=== PATIENT | female | born 1950 | race Caucasian/White ===

== ENCOUNTER → 2016-12-04 | Outpatient (CLI) | payer OTHER, MEDICARE | LOC: FIMAGING 11:38 | DX: T84.223A Displacement of internal fixation device of bones of foot and toes, initial encounter (principal); M77.32 Calcaneal spur, left foot ==

== ENCOUNTER → 2017-02-05 | Outpatient (CLI) | payer OTHER, MEDICARE | LOC: BRMIMAGING 14:24 | PROVIDERS: ATTEND Internal Medicine Hematology & Oncology | DX: Z13.820 Encounter for screening for osteoporosis (principal); Z78.0 Asymptomatic menopausal state; Z82.62 Family history of osteoporosis; E11.9 Type 2 diabetes mellitus without complications; Z85.3 Personal history of malignant neoplasm of breast ==

== ENCOUNTER → 2017-04-24 | Outpatient (CLI) | payer OTHER, MEDICARE | LOC: BMCIMAGING 13:22 | PROVIDERS: ATTEND Podiatrist Foot & Ankle Surgery | DX: Z09 Encounter for follow-up examination after completed treatment for conditions other than malignant neoplasm (principal); M85.872 Other specified disorders of bone density and structure, left ankle and foot; Z98.890 Other specified postprocedural states ==

== ENCOUNTER 2018-03-12 11:19 | Day surgery (SDC) | payer OTHER, MEDICARE ==
[2018-03-12] MEDS ORDERED: MIDAZOLAM 2 MG/2 ML VIAL IVP ONE (11:24)
[2018-03-12] MEDS ORDERED: NS 500 ML IV ONE (11:24)
[2018-03-12] MEDS ORDERED: BENZOCAINE UNIT DOSE SPRAY HURRICAINE MM ONE (11:24)
[2018-03-12] MEDS ORDERED: fentaNYL 100 MCG/2 ML INJ IVP ONE (11:24)
--- NOTE | 2018-03-12 12:01 | PDGENHP ---
History & Physical History of Present Illness: 67-year-old female with history of breast cancer. On transthoracic echocardiogram in the office she had a possible right atrial mass and now needs TRENT for further evaluation. Pertinent Past, Social, Family History: Reviewed Relevant Physical Exam: Regular rate and rhythm without murmur or gallop. Lungs clear with out wheeze rhonchi rales Cardiorespiratory Assessment: Stable for TRENT.
[2018-03-12] MEDS ORDERED: PROPOFOL 200 MG/20 ML VIAL ONE (12:12)
[2018-03-12] MEDS ORDERED: PROMETHAZINE HCL 25 MG/ML INJ IVP PRN (12:42)
[2018-03-12] MEDS ORDERED: fentaNYL 100 MCG/2 ML INJ IVP PRN (12:42)
[2018-03-12] MEDS ORDERED: NALOXONE HCL 0.4 MG/ML INJ IVP PRN (12:42)
[2018-03-12] MEDS ORDERED: ONDANSETRON 4 MG/2 ML VIAL IVP PRN (12:42)
--- NOTE | 2018-03-12 12:42 | PDANEPAE ---
ANE Past Medical History - Pulmonary History Hx COPD: No Hx Asthma/Reactive Airway Disease: No Hx Oxygen in Use at Home: No Hx Sleep Apnea: Yes ANE Review of Systems Review of Systems: ANE Patient History - Allergies Allergies/Adverse Reactions: No Known Allergies Allergy (Unverified 03/12/18 11:24) - Home Medications Home medications: home medication list seen and reviewed - NPO status NPO Status: no food or drink >8 hours - Anes Hx Anes Hx: no prior problems - Smoking Hx Smoking Status: Never smoked ANE Labs/Vital Signs - Vital Signs Height: 162.56 cm Weight: 92.533 kg ANE Physical Exam - Airway Neck exam: FROM Mallampati Score: Class 3 Mouth exam: normal dental/mouth exam - Pulmonary Pulmonary: no respiratory distress, no rales or rhonchi, clear to auscultation - Cardiovascular Cardiovascular: regular rate and rhythym, no murmur, rub, or gallop - ASA Status ASA Status: III ANE Anesthesia Plan Anesthesia Plan: GA with mask
--- NOTE | 2018-03-12 12:44 | POSTANESTH ---
Post Anesthetic Evaluation Cardiovascular Status: Normal, Stable, Similar to Pre-Op Cond Respiratory Status: Normal, Stable, Similar to Pre-op Cond. Level of Consciousness/Mental Status: Can Participate in Eval, Mildly Sleepy, Arousable Pain Control: Adequate, Prn Tx Ordered Nausea/Vomiting Control: Adequate, Prn Tx Ordered Complications Possibly Related to Anesthesia: None Noted
--- NOTE | 2018-03-12 15:22 | ECHO ---
[email or web address] [address] [address] Main: [phone] Fax: Transesophageal Echocardiography Name: ZORAIDA MORENO MR#: [id number] Study Date: 03/12/2018 Study Time: 11:46 AM Date of : 1950 Age: 67 year(s) Height: ( ) Weight: ( ) BSA: Gender: Female Examination: TRENT Indication: Eval RA Image Quality: Contrast: Requested by: Nataliya Porter Heart Rate: Rhythm: BP: / Procedure Staff Subassembly Supervisor: Mary Beth Hairston [facility] Reading Physician: Nataliya Porter MD Requesting Provider: Eileen Parkinson TRENT Exam Details Conclusions: Normal global systolic LV function. An agitated saline study was performed and was negative for intracardiac shunting. Lipomatous atrial septal wall.. No thrombus in left appendage. Possible Eustachian valve in right atrium. no significant valvular disease. The findings in the interatrial septum and right atrium are likely normal anatomic variants however cardiac MRI would be more definitive for tissue characterization. At this point patient is not sure she would like to pursue more imaging. Follow up in clinic. Measurements: Chambers Valvular Assessment AV/MV Valvular Assessment TV/PV Normal Normal Normal Name Value Range Name Value Range Name Value Range Additional Measurements: Findings: Left Ventricle: Normal global systolic LV function. Left Atrium: An agitated saline study was performed and was negative for intracardiac shunting. Lipomatous atrial septal wall.. Patient: ZORAIDA MORENO Study Date: 03/12/2018 Page 1 of 2 11:46 AM Left Atrial Appendage: No thrombus in left appendage. Right Atrium: Possible Eustachian valve in right atrium. Mitral Valve: The mitral valve is normal in appearance. There is no significant mitral valve regurgitation. Aortic Valve: The aortic valve is tri-leaflet. Trivial aortic valve regurgitation. l1n (No Signature Object) Patient: ZORAIDA MORENO Study Date: 03/12/2018 Page 2 of 2 11:46 AM [id number]
== END 2018-03-12 15:00 | disposition home or self-care (01) ==
LOC: FCATH 11:19
PROVIDERS: ATTEND Internal Medicine Cardiovascular Disease
DX: I35.8 Other nonrheumatic aortic valve disorders (principal); Z13.6 Encounter for screening for cardiovascular disorders
CPT/HCPCS: J2704

== ENCOUNTER → 2018-04-11 | Outpatient (CLI) | payer OTHER, MEDICARE ==
[~2018-04-11] MED LIST: GADOBUTROL 10 ML VIAL IVP ONE
== END ==
LOC: FIMAGING 12:55
PROVIDERS: ATTEND Physician Assistant Medical
DX: I51.9 Heart disease, unspecified (principal)
CPT/HCPCS: 75561; A9585; 82565-PO